=== PATIENT | female | born 1985 | race Caucasian/White ===

== ENCOUNTER 2023-01-07 19:27 | Emergency (ER) | payer SELFPAY ==
--- NOTE | 2023-01-07 19:29 | ED.CHESTPAIN ---
HPI - Chest Pain General Stated Complaint: chest wall pain Time Seen by Provider: 01/07/23 19:29 Source: patient Mode of arrival: ambulatory Limitations: no limitations History of Present Illness HPI narrative: Tameka is a 37-year-old female patient presenting to the clinic today with complaints of chest pain, shortness breath, anxiety x3 days. She reports the pain seems to be worse when she is driving. She recurrently rates her pain a 9/10. States the pain is stabbing and sharp in the left center of her chest and radiated to her back. Also reports some neck pain. Does feel short of breath at rest as well. History of panic attacks. History of vaping and marijuana use. No cardiac history other than a possible heart murmur when she was younger. Denies any lung issues. Related Data Home Medications Medication Instructions Recorded Confirmed No Home Medications 01/07/23 01/07/23 Allergies Allergy/AdvReac Type Severity Reaction Status Date / Time Penicillins Allergy Unknown Verified 01/07/23 19:54 Review of Systems Review of Systems: Pertinent positives per HPI. Patient denies any fever, chills, rash, headache, visual changes, dizziness, cough, runny nose, sore throat, palpitations, nausea, vomiting, diarrhea, constipation, abdominal pain, or any urinary issues. PMFSH Comments At the time of my signature, I reviewed and agree with the nursing past medical, surgical, social, and family history. There is no relevant family history pertinent to the patient complaint. Exam Narrative: General: Well-developed, well nourished, anxious appearing Head: Normocephalic, atraumatic Eyes: Pupils equally round and reactive to light bilaterally, EOM intact, sclera and conjunctive clear, no discharge, lids normal Ears: TMs intact and clear, ear canals clear, no drainage, grossly hearing normal. Nose: Nares patent, no discharge, no inflammation, no sinus tenderness. Mouth: Oropharynx without lesions or masses, good dentition, MMM. Neck: Supple, trachea midline, no enlargement of anterior or posterior cervical nodes, no thyroid masses or goiter palpable. Chest wall: No bruising or swelling noted to the chest wall, even rise and fall of the chest with respirations, tender to palpation over the left anterior chest wall Cardio: Regular rate and rhythm, s1 and s2 normal, no murmur appreciated. Resp: Clear to auscultation bilaterally anteriorly and posteriorly, no rhonchi, rales, wheezing or rubs Course Course Emergency Course: Portions of this record may have been created with voice recognition software. Level of Care: Express Care Visit Vital Signs Vital signs: Vital signs reviewed Transfer Transfered to: [facility] Transportation: Other (Private car) Transfer rationale: Chest pain, shortness of breath, anxiety, hypertension Accepting physician: Dr. Davis Transfer comments: Transfer via private car-3 day history of chest pain. EKG sinus rhythm with sinus arrhythmia MDM - Chest Pain MDM Narrative Medical decision making narrative: At the time of visit patient is resting comfortably on the exam table. EKG was performed shows sinus rhythm with sinus rhythm with a heart rate of 66 in the clinic today. No ectopy noted. Recommend transfer to the ER for further evaluation as she is complaining of chest pain, shortness of breath, anxiety, and her blood pressure is 146/107. Contacted Dr. Davis at [facility] and report was given for continuity of care and he accepts patient for transfer. Patient's EKG is relatively normal and the chest pain is been going on for 3 days so I feel comfortable with allowing her family to drive her to the emergency room today. Differential Diagnosis Differential diagnosis: Likely fracture of rib, pneumothorax, stable angina, unstable angina pectoris, atypical chest pain, st elevation myocardial infarction, costochondritis, chest pain and other (Panic attack) ECG Data EKG #1: A
[2023-01-07 19:45] VITALS: BP 146/107; PULSE 76; RESP 18; TEMP 36.6; O2SAT 100
--- NOTE | 2023-01-07 19:46 | ECG_ITS ---
Measurements Intervals [place] Rate: 66 P: 69 FL: 177 QRS: 70 QRSD: 97 T: 55 QT: 399 QTc: 419 Interpretive Statements SINUS RHYTHM WITH SINUS ARRHYTHMIA BORDERLINE ST ABNORMALITY- INFERIOR LEADS BASELINE ARTIFACT- I, II, III, AVR, AVL BORDERLINE ECG NO PREVIOUS ECG AVAILABLE FOR COMPARISON Electronically Signed On 01-08-2023 6:20:50 [facility] by Aditya Moore D.O.
== END 2023-01-07 20:10 | disposition short-term general hospital (02) ==
PROVIDERS: Emergency Provider Nurse Practitioner Family
DX: R07.89 Other chest pain (principal); R06.02 Shortness of breath; F41.9 Anxiety disorder, unspecified; R03.0 Elevated blood-pressure reading, without diagnosis of hypertension
CPT/HCPCS: 93005; 99213; G0463

== ENCOUNTER 2023-01-07 20:13 | Emergency (ER) | payer SELFPAY ==
[2023-01-07] VITALS (28 sets, daily range): BP systolic 105–146; BP diastolic 61–132; PULSE 66–88; RESP 11–24; TEMP 36.6; O2SAT 90–100
--- NOTE | ~2023-01-07 | CT_ITS ---
EXAMINATION: CTA chest PE protocol DATE: 01/08/2023 00:17 INDICATION: Chest pain. TECHNIQUE: Computed tomography angiography (CTA) of the chest was performed with 100 mL Omnipaque-350 intravenous contrast timed to evaluate the pulmonary arteries. Coronal maximum intensity projection 3D-reconstructions were created by the technologist. Automated exposure control and iterative reconst ruction technique were employed. The dose-length product was 176.01 mGy-cm. COMPARISON: Chest single view 01/07/2023 FINDINGS: There is no pneumonia or pleural effusion. The heart size is normal. No pericardial effusio n. There is no pulmonary embolus. There is a 2.9 cm mass in right adrenal gland measuring attenuation of -8 HU, consistent with an adenoma. There is dextrocurvature and mild spondylosis of thoracic spin e. IMPRESSION: 1. No pulmonary embolus. Reviewed, dictated and finalized at location E. ET MACHINE OPERATOR IMPRESSION: 1. No pulmonary embolus.
--- NOTE | ~2023-01-07 | XR_ITS ---
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 RESULT: Lines, tubes, and devices: Cholecystectomy clips. Lungs and pleura: Clear. Cardiomediastinal silhouette: Normal. Other: No acute osseous or upper abdominal finding. IMPRESSION: No acute cardiopulmonary process. Reviewed, dictated and finalized at location K. SALVAGE WORKER
--- NOTE | 2023-01-07 20:21 | ECG_ITS ---
Measurements Intervals [place] Rate: 62 P: 64 [place]: 171 QRS: 70 QRSD: 87 T: 47 QT: 398 QTc: 405 Interpretive Statements SINUS RHYTHM BASELINE ARTIFACT- I, II, III, AVR, AVL, AVF NORMAL ECG COMPARED TO ECG 01/07/2023 19:46:56 NO SIGNIFICANT CHANGES Electronically Signed On 01-08-2023 6:23:27 [employer] [employer] by Aditya Moore D.O.
[2023-01-07] MEDS: BELLADONNA ALK/PHENOB ELIX 10 ML, MAG HYDROX/ALUMINUM HYD/SIMETH 30 ML, LIDOCAINE HCL 2... PO (21:26)
[2023-01-07] MEDS: LORazepam INJ (*CRX) 2 MG/ML VIAL 0.5 MG IV PUSH (21:27)
[2023-01-07 21:29] LABS: Basophils Percent Auto 0.5 % (0.2-1.2); Eosinophils Percent Auto 0.6 % (0-4.4); Hematocrit 37.8 % (37.0-47.0); Hemoglobin 12.2 g/dL (12.0-15.0); Immature Granulocyte Absolute 0.02 K/mm3 (0.00-0.031); Immature Granulocyte Percent A 0.3 % (0-0.5); Lymphocytes Absolute Auto 1.78 K/mm3 (0.9-3.2); Lymphocytes Percent Auto 27.3 % (18.3-44.2); Mean Corpuscular HGB Conc 32.3 g/dl (32-36); Mean Corpuscular Hemoglobin 32.2 pg (26-34); Mean Corpuscular Volume 99.7 fl (80-100); Mean Platelet Volume 9.2 fl (7.4-10.4); Monocytes Absolute Auto 0.8 K/mm3 (0.1-0.6); Monocytes Percent Auto 11.8 % (2.6-8.5); Neutrophils Absolute Auto 3.9 K/mm3 (1.3-6.7); Neutrophils Percent Auto 59.5 % (45.5-73.1); Platelet Count Result 285 k/mm3 (150-375); Red Blood Count 3.79 M/mm3 (4.2-5.4); Red Cell Distribution Width 11.9 % (11.5-14.5); White Blood Count 6.5 K/mm3 (4.5-10.0)
[2023-01-07] MEDS: ASPIRIN 81 MG CHEWABLE TABLET 324 MG PO (21:36)
--- NOTE | 2023-01-07 21:38 | ED.GENADULT ---
HPI - General Adult General Chief complaint: Chest Pain Stated complaint: chest pain and SOB X2 days Time Seen by Provider: 01/07/23 20:41 History of Present Illness HPI narrative: Patient 37-year-old female who presents the emergency department with chief complaint of chest pain and shortness of breath. Patient reports she had a burning sensation left anterior portion of her chest for the last 2 days the patient states is also been very anxious. Patient has prior history of anxiety disorder and reports that she went to urgent care and they sent her to the emergency department for evaluation. Patient reports no prior history of cardiac disease reports no history of connective tissue disorder or clotting disorder. Related Data Home Medications Medication Instructions Recorded Confirmed No Home Medications 01/07/23 01/07/23 Allergies Allergy/AdvReac Type Severity Reaction Status Date / Time amoxicillin Allergy Anaphylaxis Verified 01/07/23 20:56 Penicillins Allergy Anaphylaxis Verified 01/07/23 20:56 Review of Systems Review of Systems: A 10 system review of systems was completed on the patient and is negative except for what is stated in the HPI. Nursing and ancillary documentation was reviewed. Exam Narrative: GENERAL: Well-appearing, well-nourished, and in no acute distress. HEAD: Normocephalic, atraumatic. EYES: PERRLA and EOMI. ENT: Nares clear, no rhinorrhea or epistaxis. Mucous membranes moist. NECK: Supple. CHEST: Clear to auscultation. No respiratory distress. HEART: Regular rate and rhythm. No murmur heard. Normal peripheral pulses. ABDOMEN: Soft, nontender, nondistended, normal active bowel sounds. EXTREMITIES: Normal range of motion. No edema. SKIN: Warm, dry, no rash. NEURO: No focal deficits. Alert and oriented x3. PSYCH: Anxious mood and affect. Course Vital Signs Vital signs: Vital Signs Temperature 36.6 C 01/07/23 20:15 Pulse Rate 88 01/07/23 20:15 Respiratory Rate 20 01/07/23 20:15 Blood Pressure 129/61 01/07/23 20:15 Pulse Oximetry 100 01/07/23 20:15 Oxygen Delivery Room Air 01/07/23 20:15 Temperature 36.6 C 01/07/23 20:15 Pulse Rate 69 01/07/23 20:50 Respiratory Rate 20 01/07/23 20:15 Blood Pressure 129/61 01/07/23 20:15 Pulse Oximetry 100 01/07/23 20:50 Oxygen Delivery Room Air 01/07/23 20:50 Medical Decision Making MDM Narrative Medical decision making narrative: Differential diagnosis includes ACS, PE, anxiety Laboratory studies were obtained on the patient which showed a normal CBC normal CMP liver enzymes were normal troponin was negative for both 0 and delta lipase was normal D-dimer was slightly elevated at 1.19 A CTA of the chest was obtained which showed no acute abnormality and no evidence of PE Vital Signs Vital Signs: Vital Signs Temperature 36.6 C 01/07/23 20:15 Pulse Rate 88 01/07/23 20:15 Respiratory Rate 20 01/07/23 20:15 Blood Pressure 129/61 01/07/23 20:15 Pulse Oximetry 100 01/07/23 20:15 Oxygen Delivery Room Air 01/07/23 20:15 Temperature 36.6 C 01/07/23 20:15 Pulse Rate 69 01/07/23 20:50 Respiratory Rate 20 01/07/23 20:15 Blood Pressure 129/61 01/07/23 20:15 Pulse Oximetry 100 01/07/23 20:50 Oxygen Delivery Room Air 01/07/23 20:50 Lab Data 01/07/23 21:24 01/07/23 21:24 Labs: Lab Results 01/07/23 01/08/23 Range/Units 21:24 00:00 WBC 6.5 (4.5-10.0) K/mm3 RBC 3.79 L (4.2-5.4) M/mm3 Hgb 12.2 (12.0-15.0) g/dL Hct 37.8 (37.0-47.0) % MCV 99.7 (80-100) fl MCH 32.2 (26-34) pg MCHC 32.3 (32-36) g/dl RDW 11.9 (11.5-14.5) % Plt Count 285 (150-375) k/mm3 MPV 9.2 (7.4-10.4) fl Immature Gran % (Auto) 0.3 (0-0.5) % Neut % (Auto) 59.5 (45.5-73.1) % Lymph % (Auto) 27.3 (18.3-44.2) % [place] % (Auto) 11.8 H (2.6-8.5) % Eos % (Auto) 0.6 (0-4.4) % Baso % (Aut
[2023-01-07 21:41] LABS: Prothrombin Time 13.9 Seconds (11.1-14.7)
[2023-01-07 21:42] LABS: Partial Thromboplastin Time 27.8 SECONDS (22.3-36.8)
[2023-01-07 21:43] LABS: Alanine Aminotransferase 18 U/L (6-35); Albumin Level 4.2 g/dL (3.5-5.1); Alkaline Phosphatase 51 U/L (38-126); Anion Gap 9 mmol/L (8-16); Aspartate Amino Transferase 22 U/L (14-36); Bilirubin,Total 0.5 mg/dL (0.2-1.3); Blood Urea Nitrogen 12 mg/dL (7-17); Calcium 9.5 mg/dL (8.4-10.2); Carbon Dioxide 21 mmol/L (22-30); Chloride 106 mmol/L (98-107); Estimated CRCL calculation 103 ml/min; Estimated Glomerular Filt Rate > 60; Glucose 96 mg/dL (65-110); Lipase 53 U/L (23-300); Potassium 3.8 mmol/L (3.4-5.0); Sodium 136 mmol/L (137-145)
[2023-01-07 21:51] LABS: NT Pro B Type Natriuretic Pept < 20 pg/mL (19.9-100)
[2023-01-07 21:54] LABS: Troponin I < 0.012 ng/mL (0.000-0.034)
[2023-01-07 23:24] LABS: D Dimer 1.19 ug/mL (<0.48)
[2023-01-08 00:12] VITALS: O2SAT 100
[2023-01-08 00:15] VITALS: O2SAT 100
[2023-01-08 00:28] LABS: Troponin I < 0.012 ng/mL (0.000-0.034)
[2023-01-08 00:30] VITALS: O2SAT 100
[2023-01-08 02:39] VITALS: PULSE 67
== END 2023-01-08 02:46 | disposition home or self-care (01) ==
PROVIDERS: Emergency Provider Emergency Medicine
DX: R07.89 Other chest pain (principal)
CPT/HCPCS: 36415; 71045; 71275; 80053; 83690; 83880; 84484; 85025; 85380; 85610; 85730; 93005; 96374; 99284; A9270; J2060; Q9967